=== PATIENT | female | born 2000 | race Caucasian/White ===

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

== ENCOUNTER 2021-01-20 16:50 | Emergency (ER) | payer MEDICAID ==
[~2021-01-20] VITALS: Ht 154.9 cm; Wt 45.5 kg
--- NOTE | 2021-01-20 17:32 | NUR ---
Tried to bring patient to treatment area, speaking on the wall phone, refusing to hang up.
[2021-01-20 18:34] VITALS: BP 125/96
== END 2021-01-21 05:55 | disposition left against medical advice (07) ==
LOC: ER 16:51
DX: F13.10 Sedative, hypnotic or anxiolytic abuse, uncomplicated (principal); F12.90 Cannabis use, unspecified, uncomplicated; Z87.442 Personal history of urinary calculi; Z87.440 Personal history of urinary (tract) infections; Z79.899 Other long term (current) drug therapy
CPT/HCPCS: 99281

== ENCOUNTER 2021-09-11 07:24 | Emergency (ER) | payer MEDICAID ==
[~2021-09-11] VITALS: Ht 157.5 cm; Wt 47.7 kg
[2021-09-11 07:31] VITALS: BP 136/83
== END 2021-09-11 08:18 | disposition home or self-care (01) ==
LOC: ER 07:25
DX: B34.9 Viral infection, unspecified (principal); Z20.822 Contact with and (suspected) exposure to COVID-19; J02.9 Acute pharyngitis, unspecified; R09.81 Nasal congestion; R50.9 Fever, unspecified; R51.9 Headache, unspecified; F41.9 Anxiety disorder, unspecified; F32.9 Major depressive disorder, single episode, unspecified; F12.90 Cannabis use, unspecified, uncomplicated; Z87.442 Personal history of urinary calculi; Z87.440 Personal history of urinary (tract) infections; Z88.8 Allergy status to other drugs, medicaments and biological substances; Z79.899 Other long term (current) drug therapy
CPT/HCPCS: 36415; 99283; U0003; U0005